=== PATIENT | male | born 1990 | race American Indian/Alaskan Native ===

== ENCOUNTER 2017-03-23 09:33 | Emergency (ER) | payer SELFPAY ==
[2017-03-23 09:51] VITALS: BP 127/71
--- NOTE | 2017-03-23 09:51 | EDM.PDOC ---
ED HPI GENERAL MEDICAL PROBLEM - General Chief Complaint: Chest Pain Stated Complaint: pleuritic chest pain Time Seen by Provider: 03/23/17 09:40 Source of Information: Reports: Patient. Denies: Old Records History Limitations: Reports: No Limitations - History of Present Illness INITIAL COMMENTS - FREE TEXT/NARRATIVE: The patient was brought to the emergency room via transport vehicle from [facility] for evaluation of left sharp anterior chest wall pain, which occurred after he woke up at about 2 AM on 03/12/17. He denies any history of overuse, previous injury, etc. with no treatment including NSAIDs, etc. to this point. He has not been previously evaluated by a physician for these symptoms. He rates his discomfort at 10/10 with movement and deep inspiration with 4/10 chest discomfort at this time. The patient denies any other chest pain/pressure, heart flutter, dizziness, orthostasis, orthopnea, diaphoresis, paresthesias, recent decreased exercise tolerance, or any other anginal-type symptoms. No recent history of abdominal pain, heartburn, nausea, diarrhea, melena, gross hematochezia, or any food intolerance, including fatty foods, etc.. The patient also denies any recent fever, cough, wheezing, dyspnea, etc.. Onset: Gradual Onset Date: 03/12/17 Onset Time: 02:00 Duration: Intermittent Location: Reports: Chest. Denies: Head, Face, Neck, Abdomen, Back, Pelvis, Upper Extremity, Left, Upper Extremity, Right, Lower Extremity, Left, Lower Extremity, Right, Generalized, Radiates to Quality: Reports: Sharp Severity: Moderate Improves with: Reports: Rest Worsens with: Reports: Breathing, Movement Context: Reports: Other (As above) Associated Symptoms: Reports: Chest Pain (Chest wall pain). Denies: Confusion, Cough, cough w sputum, Diaphoresis, Fever/Chills, Headaches, Loss of Appetite, Malaise, Nausea/Vomiting, Seizure, Shortness of Breath, Syncope, Weakness Treatments DISTILLER: Reports: Other (see below) (None) Left Upper Chest Pain Score (Numeric/FACES): 4 - Related Data Allergies Allergy/AdvReac Type Severity Reaction Status Date / Time bee venom protein (honey bee) Allergy Anaphylactic Verified 03/23/17 09:37 Shock Home Meds: Home Meds . [No Known Home Meds] 03/23/17 [History] Past Medical History HEENT History: Reports: Impaired Vision, Other (See Below) (Patient noncompliant with current glasses). Denies: Allergic Rhinitis, Hard of Hearing Cardiovascular History: Reports: None. Denies: Afib, Aneurysm, Arrhythmia, Blood Clots/VTE/DVT, CAD, Heart Murmur, High Cholesterol, Hypertension, Syncope Respiratory History: Denies: Asthma, Bronchitis, Recurrent, COPD, Intubation, Previous, PE, Pneumothorax, TB Gastrointestinal History: Reports: None. Denies: Celiac Disease, Cholelithiasis , Chronic Constipation, Chronic Diarrhea, Gastritis, GERD, GI Bleed, Helicobacter Pylori, Inflammatory Bowel Disease, Irritable Bowel Syndrome, Jaundice, Pancreatitis, PUD Genitourinary History: Reports: None. Denies: Acute Renal Failure, BPH, Chronic Renal Insuffiency, Renal Calculus, STD, Urinary Incontinence, UTI, Recurrent Musculoskeletal History: Reports: Amputation, Fracture, Other (See Below). Denies: Arthritis, Back Pain, Chronic, Gout, Neck Pain, Chronic, Osteoarthritis , RA, SLE Other Musculoskeletal History: Left elbow fracture in January 2007 with surgery as below, digit #3 of the right foot at age 19, near amputation of digit #3 the left foot with tendon repair Neurological History: Denies: Cerebral Aneurysms, Concussion, CVA, Headaches, Chronic, Head Trauma, Migraines, MS, Neuropathy, Peripheral, Seizure, TIA Psychiatric History: Reports: None. Denies: Abuse, Victim of, ADD, ADHD, Addiction, Anxiety, Depression, Psych Hospitalization(s), PTSD, Suicide Attempt , Suicidal Ideation Endocrine/Metabolic History: Reports: None. Denies: Diabetes, Type I, Diabetes , Type II, Hypothyroidism Hematologic History: Reports: None. Denies: Anemia, Blood Transfusion(s), Iron Deficiency Immunologic History: Reports: None. Denies: AIDS, HIV, SLE Oncologic (Cancer) History: Reports: None. Denies: Basal Cell Carcinoma, Hodgkin's Lymphoma, Leukemia, Lymphoma, Malignant Melanoma, Non-Hodgkin's Lymphoma, Squamous Cell Carcinoma Dermatologic History: Reports: None. Denies: Eczema, Psoriasis - Infectious Disease History Infectious Disease History: Reports: Chicken Pox. Denies: C-Difficile, Measles , Meningitis, Mononucleosis, MRSA, Mumps, Pertussis (Whooping Cough), Rheumatic Fever, Rubella, Scarlet Fever, Shingles, TB, VRE - Past Surgical History Head Surgeries/Procedures: Reports: None HEENT Surgical History: Reports: Oral Surgery, Other (See Below). Denies: Adenoidectomy, Eye Surgery, Laser Surgery, LASIK, Myringotomy w Tube(s), Naso- Sinus Surgery, Tonsillectomy Other HEENT Surgeries/Procedures: Multiple teeth extractions Cardiovascular Surgical History: Reports: None. Denies: Varicose, Vascular Surgery Respiratory Surgical History: Reports: None. Denies: Thoracentesis GI Surgical History: Reports: None. Denies: Appendectomy, Cholecystectomy, Colonoscopy, EGD, Hernia, Abdominal, Hernia, Inguinal, Hernia Repair/Other Male Surgical History: Reports: None. Denies: Circumcision, Vasectomy Endocrine Surgical History: Reports: None. Denies: Thyroid Biopsy Neurological Surgical History: Reports: None. Denies: C-Spine, Discectomy, Intracranial, Laminectomy, Lumbar Spine, Sacral Spine, Spinal Fusion, Vertebroplasty Musculoskeletal Surgical History: Reports: Amputation, ORIF, Other (See Below). Denies: Arthroscopic Procedure, Carpal Tunnel, Ganglion Cyst, Joint Replacement, Shoulder Surgery Other Musculoskeletal Surgeries/Procedures:: ORIF of left elbow fracture in January 2007, tendon repair of digit #3 of the left foot at a 12 Oncologic Surgical History: Reports: None Dermatological Surgical History: Reports: None Social & Family History - Tobacco Use Smoking Status *Q: Current Every Day Smoker Tobacco Use Within Last Twelve Months: Cigarettes Years of Tobacco use: 17 Packs/Tins Daily: 2 (Started using tobacco at age 9 with patient stopping cigarette use couple of months ago and started using chewing tobacco) Smoking Cessation Information Provided To Patient: Yes Second Hand Smoke Exposure: No Second Hand Smoke Education Provided: No - Caffeine Use Caffeine Use: Reports: Coffee (3 cups per day), Energy Drinks (1 can per day), Soda (2 sodas per day), Tea (3 cups per day) - Alcohol Use Alcohol Use History: Yes Days Per Week of Alcohol Use: 2 (No previous DWIs, problems with alcohol abuse, etc.) Number of Drinks Per Day: 10 (Usually beer) Total Drinks Per Week: 20 Alcohol Use Frequency: Binges - Recreational Drug Use Recreational Drug Use: Yes Drug Use in Last 12 Months: Yes Recreational Drug Type: Reports: Marijuana/Hashish (Started at age 12). Denies : Amphetamines (Speed), Cocaine, Heroin, LSD (Acid), Methamphetamine, Morphine Recreational Drug Use Frequency: Daily Recreational Drug Route: Reports: Inhaled - Living Situation & Occupation Living situation: Reports: Single (2 children from previous relationship), Alone. 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 ED EXAM, GENERAL - Physical Exam Exam: See Below Exam Limited By: No Limitations General Appearance: Alert, WD/WN, No Apparent Distress Head: Atraumatic, Normocephalic Neck: Normal Inspection, Supple, Non-Tender, Full Range of Motion. No: Lymphadenopathy (L), Lymphadenopathy (R), Thyromegaly Respiratory/Chest: No Respiratory Distress, Lungs Clear, Normal Breath Sounds, No Accessory Muscle Use, Other (Moderate left anterior mid palpation pain with no crepitation, deformity, ecchymosis, rubs, etc.). No: Pleural Rub, Retractions Cardiovascular: Normal Peripheral Pulses, Regular Rate, Rhythm, No Edema, No Gallop, No JVD, No Murmur, No Rub. No: Gallop/S3, Gallop/S4, Friction Rub Peripheral Pulses: 2+: Radial (L), Radial (R) GI/Abdominal: Normal Bowel Sounds, Soft, Non-Tender, No Organomegaly, No Distention, No Abnormal Bruit, No Mass. No: Guarding (Male) Exam: Deferred Rectal (Males) Exam: Deferred Back Exam: Normal Inspection, Full Range of Motion. No: CVA Tenderness (L), CVA Tenderness (R), Muscle Spasm Extremities: Normal Inspection, Normal Range of Motion, Non-Tender, Normal Capillary Refill, No Pedal Edema Neurological: Alert, Oriented, CN II-XII Intact, Normal Cognition, Normal Gait, No Motor/Sensory Deficits Psychiatric: Normal Affect, Normal Mood Skin Exam: Warm, Dry, Intact, Normal Color, No Rash, Stud(s) (Bilateral auricular), Tattoo(s) (Multiple). No: Diaphoretic Lymphatic: No Adenopathy Course - Vital Signs Last Recorded V/S: Last Vital Signs Temp 36.9 C 03/23/17 09:42 Pulse 67 03/23/17 09:45 Resp 15 03/23/17 09:45 BP 127/71 09/07/17 09:45 Pulse Ox 100 03/23/17 09:45 Vital Signs - 24 hr 03/23/17 03/23/17 09:42 09:45 Temperature [ 36.9 C Temporal] Pulse, 77 67 Peripheral [ Left Pulse Oximetry] Respiratory 14 15 Rate Blood Pressure 124/82 127/71 [Left Upper Arm ] O2 Sat by Pulse 96 100 Oximetry O2 Sat by Pulse 99 Oximetry [ Nasal Cannula] - Orders/Labs/Meds Orders: Active Orders 24 hr Category Date Time Status Chest 2V [CR] Urgent Exams 03/23/17 09:51 Ordered Obtain Past Medical Record [OM.PC] Routine Oth 03/23/17 09:51 Active Labs: None Meds: Medications Discontinued Medications Generic Name Dose Route Start Last Admin Trade Name Mahendra PRN Reason Stop Dose Admin Ketorolac Tromethamine 60 mg 03/23/17 10:12 03/23/17 10:16 Toradol IM 03/23/17 10:13 60 mg ONETIME ONE Administration Methylprednisolone Acetate 80 mg 03/23/17 10:13 03/23/17 10:16 Depo-Medrol IM 03/23/17 10:14 80 mg ONETIME ONE Administration - Radiology Interpretation Free Text/Narrative:: Chest x-ray, PA and lateral, shows evidence of probable moderate pulmonary obstructive disease with no pneumothorax, pulmonary infiltrates, cardiomegaly, CHF, etc. No evidence of rib fractures, etc. Departure - Departure Time of Disposition: 10:30 Disposition: Home, Self-Care 01 Clinical Impression: Chest wall pain, COPD (chronic obstructive pulmonary disease), Tobacco abuse counseling, Illicit drug use, continuous - Discharge Information Instructions: Chronic Obstructive Pulmonary Disease, [id number], Chest Wall Pain, [id number], Nonspecific Chest Pain, [id number] Referrals: PCP,None [Primary Care Provider] - Forms: ED Department Discharge Additional Instructions: 1. Follow up with your regular provider in 10-14 days as needed, if symptoms persist. 2. Tylenol 650 mg by mouth every 4 hours and/or OTC ibuprofen 2-3 tabs by mouth every 6 hours with food as directed./needed. Next dose of ibuprofen as needed in 6 hours secondary to medications given in the emergency room 3. BenGay or equivalent, heating pad, and/or ice packs as directed. 4. Stop all tobacco use LOKESH as directed/per provided information and consider contacting Quit [facility]ne, etc.. 5. Decrease alcohol intake as discussed 6. Discontinue all energy drink use LOKESH as discussed 7. Discuss with your regular provider possibility of lung function test, i.e., PFTs, secondary to evidence of COPD in your chest x-ray today - Problem List & Annotations (1) Chest wall pain SNOMED Code(s): 577351911 Code(s): R07.89 - OTHER CHEST PAIN Status: Acute Priority: High Current Visit: Yes Onset Date: ~03/12/17 Annotation/Comment:: Chest wall pain by physical exam and history as above. No evidence of cardiac etiology to the patient's symptoms. [employer] work excuse provided, although the patient wants to return back to work today without restrictions. Symptomatic treatment as per discharge instructions (2) COPD (chronic obstructive pulmonary disease) SNOMED Code(s): 98747078 Code(s): J44.9 - CHRONIC OBSTRUCTIVE PULMONARY DISEASE, UNSPECIFIED Status : Chronic Priority: Medium Current Visit: Yes Onset Date: 03/23/17 Annotation/Comment:: Evidence of COPD by today's chest x-ray with tobacco use history as above. No recent fever or bronchitic type symptoms. PFTs recommended by regular provider as per discharge instructions Qualifiers: COPD type: emphysema Emphysema type: panlobular Qualified Code(s): J43.1 - Panlobular emphysema (3) Illicit drug use, continuous SNOMED Code(s): 581812654 Code(s): F19.90 - OTHER PSYCHOACTIVE SUBSTANCE USE, UNSPECIFIED, UNCOMPLICATED Status: Chronic Priority: Medium Current Visit: Yes Annotation/Comment:: Patient has not used marijuana for the last couple of months. He was congratulated about stopping use of this drug with no other illicit drug use by history. He was also cautioned to decrease his alcohol intake and stop use of all energy drinks (4) Tobacco abuse counseling SNOMED Code(s): 473113476, 393900022, 902680363 Code(s): Z71.6 - TOBACCO ABUSE COUNSELING Status: Chronic Priority: Medium Current Visit: Yes Annotation/Comment:: Tobacco cessation strongly encouraged especially in light of his possible COPD as above. Tobacco cessation information provided at discharge. Patient was counseled on the use of Nicorette gum - Problem List Review Problem List Initiated/Reviewed/Updated: Yes - My Orders Last 24 Hours: My Active Orders 03/23/17 09:51 Chest 2V [CR] Urgent Obtain Past Medical Record [OM.PC] Routine - Assessment/Plan Last 24 Hours: My Active Orders 03/23/17 09:51 Chest 2V [CR] Urgent Obtain Past Medical Record [OM.PC] Routine Assessment:: As above Plan: As above. Extensive precautions were given to the patient, who is in agreement with the treatment plan. See Patient Instructions for further treatment and plan.
[2017-03-23] MEDS ORDERED: Ketorolac 60 MG/2 ML SDV IM ONE (10:12)
[2017-03-23] MEDS ORDERED: methylPREDNISolone Acetate 80 MG/ML SDV IM ONE (10:13)
== END 2017-03-23 10:30 | disposition home or self-care (01) ==
LOC: LL.ED 09:33
DX: R07.89 Other chest pain (principal); J44.9 Chronic obstructive pulmonary disease, unspecified; F19.90 Other psychoactive substance use, unspecified, uncomplicated; F17.210 Nicotine dependence, cigarettes, uncomplicated; Z71.6 Tobacco abuse counseling; Z98.890 Other specified postprocedural states; Z91.018 Allergy to other foods
CPT/HCPCS: 71020; 96372; 99284; J1040; J1885